=== PATIENT | female | born 1985 | race Caucasian/White ===

== ENCOUNTER 2020-05-15 15:24 | Emergency (ER) | payer OTHER ==
[~2020-05-15] VITALS: Ht 152.4 cm; Wt 61.2 kg
[2020-05-15 15:58] VITALS: Ht 152.4 cm; Wt 61.2 kg
[2020-05-15 17:10] LABS: BASOPHIL % 0.4 % (0-2); PLATELET COUNT 245 x10^3mcL (130-400)
[2020-05-15 17:11] LABS: RED CELL DISTRIBUTION WIDTH 14.6 % (11.5-14.5)
[2020-05-15 17:24] LABS: CALCIUM 9.3 mg/dL (8.5-10.1); CARBON DIOXIDE 27.7 mmol/L (21-32); CHLORIDE SERUM 104 mmol/L (98-107); CREATININE SERUM 0.9 mg/dL (0.6-1.0); GFR1 > 60 mL/min; GLUCOSE SERUM 99 mg/dL (74-106); POTASSIUM SERUM 3.5 mmol/L (3.5-5.1); SODIUM SERUM 141 mmol/L (136-145)
[2020-05-15 17:29] LABS: ALBUMIN 4.4 g/dL (3.4-5.0); ALKALINE PHOSPHATASE 74 U/L (46-116); ALT/SGPT 22 U/L (14-59); AST/SGOT 23 U/L (15-37); BILIRUBIN TOTAL 0.4 mg/dL (0.20-1.00)
[2020-05-15 17:35] LABS: T3 TOTAL 1.35 ng/mL
[2020-05-15 17:37] LABS: FREE T4 1.39 ng/dL (0.76-1.46); FREE THYROXINE INDEX 3.5 ug/dL (1.4-4.5); T4(THYROXINE) 11.7 ug/dL (4.7-13.3)
[2020-05-15 17:44] LABS: TOTAL PROTEIN, SERUM 8.3 g/dL (6.4-8.2)
[2020-05-15 18:21] VITALS: BP 135/87
[2020-05-15 18:31] LABS: AMPHETAMINE QUAL UR NONE DETECTED (See below)
== END 2020-05-15 18:21 | disposition home or self-care (01) ==
LOC: ED 15:24
PROVIDERS: Emergency Medicine
DX: R51 Headache (principal); R42 Dizziness and giddiness; E03.9 Hypothyroidism, unspecified; R11.10 Vomiting, unspecified
CPT/HCPCS: 84439